=== PATIENT | male | born 1990 | race African-American/Black ===

== ENCOUNTER 2018-08-13 06:54 | Emergency (ER) | payer MEDICAID, OTHER ==
[~2018-08-13] VITALS: Ht 182.9 cm; Wt 86.4 kg
--- NOTE | 2018-08-13 07:08 | NUR ---
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 PT RESPONSIVE TO PAIN UPON ARRIVAL TO ED, NARCAN GIVEN D/T PT'S DECREASED LOC WITH POSSIVE RESPONSE. RN AT BEDSIDE, TECH SITTING WITH PT
[2018-08-13] MEDS ORDERED: NALOXONE 0.4 MG/ML, 1ML ONE (07:17)
[2018-08-13] MEDS ORDERED: NALOXONE 0.4 MG/ML, 1ML IVPush ONE (07:30)
--- NOTE | 2018-08-13 07:36 | NUR ---
PT RESTING ON GURNEY SLEEPING. PT RESPONSIVE TO PAINFUL STIMULI. PT CONNECTED TO ALL MONITORS. PT IS NSR WITH HR IN 80'S, PB IS 110/75, AND SPO2% IS 99% WITH UNLABORED RESPIRATIONS EQUAL BILATERALLY. SEIZURE PRECAUTION PADS IN PLACE TO PROTECT PT FROM THRASHING MOVEMENTS WHEN HE REPOSITIONS HIMSELF. SITTER NEAR DOORWAY FOR DIRECT OBSERVATION. SUCTION SET UP AND AVAILABLE AT BEDSIDE. ALL SAFETY MEASURES IN PLACE.
[2018-08-13] MEDS ORDERED: ZIPRASIDONE 20 MG INJ IM ONE ×2 (07:56→08:00)
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
--- NOTE | 2018-08-13 08:10 | NUR ---
ALL OF PT'S BELONGINGS REMOVED FROM HIS ROOM & SECURED, SHIRT & JACKET HAD TO BE CUT TO BE REMOVED. PT'S WATCH & RAZORBLADES GIVEN TO SECURITY FOR SAFE KEEPING
[2018-08-13 08:45] VITALS: BP 115/58
[2018-08-13 08:46] LABS: BASOPHILS # (AUTO) 0.01 x10^3/uL (0-0.1); BASOPHILS % (AUTO) 0 % (0-1); EOSINOPHILS # (AUTO) 0.08 x10^3/uL (0-0.4); EOSINOPHILS % (AUTO) 2 % (1-7); LYMPHOCYTES # (AUTO) 0.72 x10^3/uL (1-3.4); LYMPHOCYTES % (AUTO) 14 % (22-44); MD NO; MEAN CORPUSCULAR HEMOGLOBIN 30.7 pg (27.5-34.5); MEAN CORPUSCULAR HGB CONC 33.4 g/dL (33.2-36.2); MEAN CORPUSCULAR VOLUME 91.9 fL (81-97); MEAN PLATELET VOLUME 7.5 fL (7.4-10.4); MONOCYTES # (AUTO) 0.22 x10^3/uL (0.2-0.8); MONOCYTES % (AUTO) 4 % (2-9); NEUTROPHILS # (AUTO) 4.04 x10^3/uL (1.8-6.8); NEUTROPHILS % (AUTO) 80 % (42-75); PLATELET COUNT 217 x10^3/uL (130-400); RED BLOOD COUNT 3.93 x10^6/uL (4.38-5.82); RED CELL DISTRIBUTION WIDTH 13.4 % (9.4-14.8)
--- NOTE | 2018-08-13 08:54 | NUR ---
PROVIDED BESIDE REPORT TO ZAK DUMONT. ALL QUESTIONS ANSWERED.
[2018-08-13 08:57] LABS: ALANINE AMINOTRANSFERASE 52 U/L (12-78); ALBUMIN 3.7 g/dL (3.4-5.0); ANION GAP 8 mmol/L (5-15); CALCIUM 8.3 mg/dL (8.5-10.1); CHLORIDE 107 mmol/L (98-107); CREATININE 0.96 mg/dL (0.7-1.3)
[2018-08-13 08:59] LABS: ALKALINE PHOSPHATASE 57 U/L (45-117); BILIRUBIN,TOTAL 3.1 mg/dL (0.2-1.0); TOTAL PROTEIN 6.9 g/dL (6.4-8.2)
[2018-08-13 09:00] LABS: ACETAMINOPHEN < 2 mcg/mL (10-30); SALICYLATE LEVEL < 1.7 mg/dL (2.8-20.0)
--- NOTE | 2018-08-13 09:56 | NUR ---
LATE ENTRY: BEDSIDE SBAR REPORT RECEIVED FROM ZAK PEPE. PT CARE ASSUMED. PT SLEEPING, NAD, VSS. PT RESPONSIVE TO PAINFUL STIMULI AT THIS TIME AND IS NON-VERBAL. SECURITY CALLED AND PT PLACED IN TWO POINT RESTRAINTS. CT TO TAKE PT. PER CT PT MOVING TOO MUCH TO TRANSFER TO EXAM TABLE. THIS RN WENT WITH PT AND MOVED PT TO EXAM TABLE. PT STILL FOR EXAM AND EXAM COMPLETED. REMAINING RESTRAINTS REMOVED. SEIZURE PADS IN PLACE ALONG GURNEY RAILS FOR PT PROTECTION. PT CONTINUES TO BE RESPONIVE TO PAINFUL STIMULI AND NON-VERBAL. SITTER OUTSIDE ROOM PROVIDING DIRECT PT OBSERVATION.
--- NOTE | 2018-08-13 11:10 | NUR ---
RECEIVED REPORT FROM JULIA CRESPO, ASSUMING CARE OF PT AT THIS TIME. PT CURRENTLY SLEEPING IN BED WITH MONITORING IN PLACE. VSS. SITTER IN MUÑO[place] FOR CONTINUOUS MONITORING.
--- NOTE | 2018-08-13 12:16 | NUR ---
PT CONTINUES TO SLEEP IN BED, NADN, RR EVEN AND UNLABORED. VSS. SITTER IN MU[place] FOR CONTINUOUS MONITORING.
--- NOTE | 2018-08-13 12:45 | NUR ---
MD TO BEDSIDE TO RECHECK PT ALERTNESS. PT ABLE TO OPEN EYES AND IS NOW ATTEMPTING TO ANSWER QUESTIONS. SPEECH CONTINUES TO BE SLURRED AND PT FALLS ASLEEP QUICKLY WHEN INTERACTION STOPS. IV REMOVED WITH MD PERMISSION. VSS. PER MD WAITING ABOUT AN HOUR FOR PT TO WAKE FULLY, THEN ATTEMPT TO AMB.
--- NOTE | 2018-08-13 14:17 | NUR ---
PT RESTING IN BED. SITTER AT BEDSIDE. VSS.
--- NOTE | 2018-08-13 15:03 | NUR ---
ATTEMPTED TO WAKE AND ORIENT PT. SPEECH CONTINUES TO BE SLURRED, VERY DROWSY FALLING ASLEEP EASILY WITHOUT CONTINUOUS STIMULATION. PT ATTEMPTING TO FOLLOW COMMANDS, STATES NAME IS SUKHI BUT UNABLE TO RECALL BIRTHDAY OR LAST NAME. VSS. SITTER IN MUÑO[place] FOR CONTINUOUS MONITORING. WILL CONTINUE TO CHECK
--- NOTE | 2018-08-13 16:25 | NUR ---
LUNCH RN: PT ASLEEP IN THE POSITION. PT DENIES PAIN. PT AROUSABLE TO FIRM SHOULDER RUB. PT REPORTS "LEAVE ME ALONE I WANT TO SLEEP." PT UNABLE TO PROVIDE UA. AWAITING FURTHER ORDERS.
--- NOTE | 2018-08-13 17:24 | NUR ---
ATTEMPTED TO AROUSE PT. PT NOW AWAKE AND HOLDING CONVERSATION, ANSWERING QUESTIONS APPROPRIATELY. PT GIVEN WATER AND GRAM CRACKERS. UPDATED. PT TO BE DCd
--- NOTE | 2018-08-13 17:56 | NUR ---
PRIOR TO DC PT GIVEN SHIRT AND SWEATER, D/T HIS BEING CUT OFF, SOCKS, CRACKERS AND WATER. ALSO PROVIDED WITH A TAXI VOUCHER FOR SAFE TRANSPORT HOME
== END 2018-08-13 17:58 | disposition home or self-care (01) ==
LOC: ED 17:50
DX: G93.40 Encephalopathy, unspecified (principal); R51 Headache
CPT/HCPCS: 36415; 70450; 80053; 80307; 80329; 85025; 96372; 96374; 99291; J2310; J3486; G0480